=== PATIENT | female | born 1945 | race Two or more races ===

== ENCOUNTER 2023-01-05 20:54 | Emergency (ER) | payer OTHER, MEDICAID ==
[~2023-01-05] VITALS: Ht 152.4 cm; Wt 55.3 kg
[2023-01-05 20:54] VITALS: BP 161/71
--- NOTE | 2023-01-05 21:16 | NUR ---
PT [facility] BLS. TAKEN TO BED 3
--- NOTE | 2023-01-05 21:26 | NUR ---
Dr. Zafar examining patient.
--- NOTE | 2023-01-05 21:44 | NUR ---
She is here for generalize weakness evalautaion. Pt with nasal canula 3. son at the bed side
--- NOTE | 2023-01-05 21:49 | NUR ---
X-Ray at bedside.
[2023-01-05 22:09] LABS: APPEARANCE,URINE CLEAR (CLEAR); BILIRUBIN,URINE NEGATIVE (NEGATIVE); BLOOD, URINE 1+ (NEGATIVE); LEUKOCYTE ESTERASE ,URINE NEGATIVE (NEGATIVE); NITRITE, URINE NEGATIVE (NEGATIVE); UGLUCOSE NEGATIVE (NEGATIVE)
[2023-01-05 22:11] LABS: COLOR,URINE CLEAR (YELLOW)
[2023-01-05 22:50] LABS: ALBUMIN 3.9 g/dL (3.4-5.0); ANION GAP 17.6 (8-16); ASPARTATE AMINOTRANSFERASE 18 U/L (15-37); CARBON DIOXIDE 22.9 mmol/L (21-32); CHLORIDE 102 mmol/L (98-107); CREATININE 1.1 mg/dL (0.6-1.3); GLUCOSE 89 mg/dL (74-106); POTASSIUM 3.5 mmol/L (3.5-5.1); SODIUM SERUM 139 mmol/L (136-145); TOTAL BILIRUBIN 0.3 mg/dL (0.0-1.0); UREA NITROGEN, BLOOD 15 mg/dL (7-18)
[2023-01-05 22:51] LABS: BASOPHILS % (AUTO) 0.5 % (0.0-2.0); EOSINOPHILS # (AUTO) 0.1 K/uL (0-0.4); EOSINOPHILS % (AUTO) 1.4 % (0.0-4.0); HEMATOCRIT 35.3 % (36-48); HEMOGLOBIN 11.9 g/dL (12.0-16.0); LYMPHOCYTES # (AUTO) 1.8 K/uL (2.5-16.5); LYMPHOCYTES % (AUTO) 25.2 % (20.5-51.1); MEAN CORPUSCULAR HEMOGLOBIN 33 pg (27-31); MEAN CORPUSCULAR HGB CONC 34 g/dL (33-37); MEAN CORPUSCULAR VOLUME 97.8 fL (80-94); MONOCYTES # (AUTO) 0.7 K/uL (0.8-1.0); MONOCYTES % (AUTO) 9.7 % (1.7-9.3); NEUTROPHILS # (AUTO) 4.4 K/uL (1.8-7.7); NEUTROPHILS % (AUTO) 63.2 % (42.2-75.2); PLATELET COUNT (AUTO) 184 K/uL (140-450); RED BLOOD CELL COUNT(AUTO) 3.61 MIL/uL (4.20-5.40); RED CELL DISTRIBUTION WIDTH 19.5 % (11.6-13.7)
[2023-01-06] MEDS ORDERED: NACL 0.9% 1,000 ML IV ONE (00:35)
--- NOTE | 2023-01-06 02:23 | NUR ---
Patient discharged with v/s stable. Written and verbal after care instructions given and explained by Dr. Zafar Patient verbalized understanding. Ambulatory with steady gait. All questions addressed prior to discharge. Advised to follow up with PMD. IV is removed and pt is ambualtory accompany by son. pt left with her belonogings
[2023-01-06 02:24] VITALS: BP 134/74
== END 2023-01-06 02:23 | disposition home or self-care (01) ==
LOC: MED 20:54
DX: R53.1 Weakness (principal); E03.9 Hypothyroidism, unspecified; E87.20 Acidosis, unspecified; C64.9 Malignant neoplasm of unspecified kidney, except renal pelvis; I11.0 Hypertensive heart disease with heart failure; I50.9 Heart failure, unspecified; E11.9 Type 2 diabetes mellitus without complications
CPT/HCPCS: 36415; 71045; 80053; 81003; 83605; 84443; 85025; 87040; 87086; 93005; 96360; 99285; J7030; Q0092